=== PATIENT | male | born 2005 | race Two or more races ===

== ENCOUNTER 2024-08-14 09:12 | Emergency (ER) | payer MEDICAID, OTHER ==
[~2024-08-14] VITALS: Ht 167.6 cm; Wt 73.9 kg
[2024-08-14] MEDS ORDERED: ALBUTEROL FS 2.5 MG/3 ML VIAL.NEB ONE (09:50)
[2024-08-14] MEDS ORDERED: IPRATROPIUM NEB FS 0.5 MG/2.5 ML AMPUL.NEB ONE (09:50)
[2024-08-14 09:56] VITALS: O2SAT 97
[2024-08-14] MEDS: IPRATROPIUM NEB FS 0.5 MG/2.5 ML AMPUL.NEB NEB ONE (09:56)
[2024-08-14] MEDS: ALBUTEROL FS 2.5 MG/3 ML VIAL.NEB NEB ONE (09:56)
[2024-08-14 10:11] VITALS: O2SAT 98
[2024-08-14] MEDS ORDERED: GUAI1TBM19 PO (10:43)
[2024-08-14] MEDS ORDERED: ALBU18HF2 INH (10:43)
[2024-08-14] MEDS ORDERED: BENZ-13 PO (10:43)
[2024-08-14 10:52] VITALS: TEMP 98.6
[2024-08-14 10:53] VITALS: BP 136/87; O2SAT 100
== END 2024-08-14 10:54 | disposition home or self-care (01) ==
LOC: ER 09:20
DX: J06.9 Acute upper respiratory infection, unspecified (principal); B97.89 Other viral agents as the cause of diseases classified elsewhere; R05.9 Cough, unspecified; J45.909 Unspecified asthma, uncomplicated; Z20.822 Contact with and (suspected) exposure to COVID-19
CPT/HCPCS: 71045-TC